=== PATIENT | female | born 1955 | race Caucasian/White ===

== ENCOUNTER 2017-09-12 15:37 | Inpatient (IN) | payer BC ==
[~2017-09-12] VITALS: Ht 149.9 cm; Wt 58.1 kg
[2017-09-12 16:08] VITALS: BP_SYST 187
[2017-09-12 18:17] LABS: EOSINOPHILS % (AUTO) 0.2 % (0.0-4.0); HEMOGLOBIN 16.4 g/dL (12.0-16.0); LYMPHOCYTES # (AUTO) 0.6 K/uL (1.0-5.5); LYMPHOCYTES % (AUTO) 6.2 % (20.5-51.5); MEAN CORPUSCULAR HEMOGLOBIN 31 pg (27-31); MEAN CORPUSCULAR HGB CONC 33 % (32-36); MEAN CORPUSCULAR VOLUME 93 fL (79.0-98.0); MONOCYTES # (AUTO) 0.3 K/uL (0.0-1.0); MONOCYTES % (AUTO) 3.6 % (1.7-9.3); PLATELET COUNT (AUTO) 358 K/uL (130-430); RED BLOOD CELL COUNT(AUTO) 5.37 MIL/uL (4.2-6.2); RED CELL DISTRIBUTION WIDTH 12.6 % (9.0-15.0); WHITE BLOOD COUNT (AUTO) 9.6 K/uL (4.8-10.8)
[2017-09-12 18:20] LABS: BASOPHILS % (AUTO) 0.2 % (0.0-2.0); NEUTROPHILS # (AUTO) 8.7 K/uL (1.8-7.7); NEUTROPHILS % (AUTO) 89.8 % (40.0-70.0)
[2017-09-12 20:21] LABS: BILIRUBIN,URINE NEGATIVE (NEGATIVE); BLOOD, URINE NEGATIVE (NEGATIVE); CLARITY/URINE CLEAR (CLEAR); COLOR,URINE YELLOW (YELLOW); GLUCOSE,URINE 3+ (NEGATIVE); KETONES,URINE 3+ (NEGATIVE); LEUKOCYTE ESTERASE ,URINE NEGATIVE (NEGATIVE); NITRITE, URINE NEGATIVE (NEGATIVE); PH,URINE 6.5 (5.0-8.0); PROTEIN URINE NEGATIVE (NEGATIVE); UROBILINOGEN,URINE 0.2 (0.2-1.0)
[2017-09-12 20:48] LABS: BACTERIA,URINE None Seen /HPF (None Seen); RBC,URINE 0-3 /HPF (0-3); WBC,URINE 0-3 /HPF (0-3)
[2017-09-12] MEDS ORDERED: MORPHINE 4 MG/ML INJ. SYRINGE IVP ONE (21:30)
[2017-09-12] MEDS ORDERED: NACL 0.9% 1,000 ML IV ONE (21:30)
[2017-09-12] MEDS ORDERED: MORPHINE 2 MG/ML INJ. SYRINGE ONE (22:18)
[2017-09-12] MEDS: NACL 0.9% 1,000 ML IV SCH (22:50)
[2017-09-12] MEDS ORDERED: ACETAMINOPHEN 325 MG TABLET PO PRN (23:15)
[2017-09-12] MEDS ORDERED: MORPHINE 2 MG/ML INJ. SYRINGE IVP PRN (23:15)
[2017-09-12] MEDS ORDERED: ONDANSETRON HCL 4 MG/2 ML VIAL IVP PRN (23:15)
[2017-09-13 02:12] LABS: CALCIUM 9.7 mg/dL (8.4-11.0); CREATININE 0.59 mg/dL (0.55-1.30); POTASSIUM 4.4 mmol/L (3.5-5.1)
[2017-09-13 02:16] LABS: ALBUMIN 4.2 g/dL (3.4-4.8); TOTAL BILIRUBIN 0.6 mg/dL (0.0-1.0)
[2017-09-13 02:43] LABS: FREE T4 (FREE THYROXINE) 0.5 ng/dL (0.6-1.6); PHOSPHORUS 4.5 mg/dL (2.7-4.5); THYROID STIMULATING HORMONE 0.41 uIu/mL (0.34-4.82)
[2017-09-13] MEDS ORDERED: LISI10TA5 PO (06:45)
[2017-09-13] MEDS ORDERED: GLU500 PO (06:45)
[2017-09-13] MEDS: DOCUSATE SODIUM 100 MG CAPSULE PO SCH ×2 (09:00→21:00)
[2017-09-13] MEDS: NACL 0.9% 1,000 ML IV SCH (10:07)
[2017-09-13 10:29] VITALS: BP_SYST 138
[2017-09-13 12:00] VITALS: BP_SYST 135
[2017-09-13 16:00] VITALS: BP_SYST 134
[2017-09-13] MEDS ORDERED: SIMETHICONE 80 MG TAB.CHEW PO PRN (16:15)
[2017-09-13] MEDS ORDERED: LORazepam 2 MG/ML VIAL IVP PRN (16:15)
[2017-09-13] MEDS ORDERED: ZOLPIDEM TARTRATE 5 MG TABLET PO PRN (16:15)
[2017-09-13] MEDS ORDERED: BISACODYL 10 MG/SUPPOSITORY RC PRN (16:15)
[2017-09-13] MEDS ORDERED: POTASSIUM CHLORIDE 20 MEQ TAB.PRT.SR PO PRN (16:15)
[2017-09-13] MEDS ORDERED: INSULIN REGULAR, HUMAN 100 UNITS/ML, 10 ML VIAL (novoLIN R) SUBCUT PRN (16:15)
[2017-09-13] MEDS: D5/0.45 NS 1,000 ML IV SCH (17:00)
[2017-09-13] MEDS ORDERED: DEXTROSE 50%-WATER 50 ML DISP.SYRIN IVP PRN ×2 (17:30)
[2017-09-13] MEDS ORDERED: GLUCOSE 15 GM GEL (in 37.5 GM TUBE) PO PRN ×2 (17:30)
[2017-09-13 20:10] VITALS: BP_SYST 149
[2017-09-13 23:56] VITALS: BP_SYST 136
[2017-09-14] MEDS: D5/0.45 NS 1,000 ML IV SCH ×2 (01:16→09:40)
[2017-09-14 08:01] LABS: BASOPHILS # (AUTO) 0.1 K/uL (0.0-0.2); BASOPHILS % (AUTO) 0.6 % (0.0-2.0); EOSINOPHILS # (AUTO) 0.1 K/uL (0.0-0.4); EOSINOPHILS % (AUTO) 0.7 % (0.0-4.0); HEMATOCRIT 43.8 % (36-48); HEMOGLOBIN 14.4 g/dL (12.0-16.0); LYMPHOCYTES # (AUTO) 1.8 K/uL (1.0-5.5); LYMPHOCYTES % (AUTO) 20.4 % (20.5-51.5); MEAN CORPUSCULAR HEMOGLOBIN 31 pg (27-31); MEAN CORPUSCULAR HGB CONC 33 % (32-36); MEAN CORPUSCULAR VOLUME 93 fL (79.0-98.0); MONOCYTES # (AUTO) 0.8 K/uL (0.0-1.0); NEUTROPHILS # (AUTO) 6.1 K/uL (1.8-7.7); NEUTROPHILS % (AUTO) 69.3 % (40.0-70.0); PLATELET COUNT (AUTO) 326 K/uL (130-430); RED CELL DISTRIBUTION WIDTH 12.5 % (9.0-15.0); WHITE BLOOD COUNT (AUTO) 8.9 K/uL (4.8-10.8)
[2017-09-14 08:05] LABS: CALCIUM 8.9 mg/dL (8.4-11.0); CREATININE 0.52 mg/dL (0.55-1.30)
[2017-09-14 08:15] VITALS: BP_SYST 149
[2017-09-14 08:20] LABS: ALBUMIN 3.1 g/dL (3.4-4.8); BILIRUBIN,DIRECT 0.1 mg/dL (0.0-0.3); PHOSPHORUS 2.9 mg/dL (2.7-4.5); TOTAL BILIRUBIN 0.6 mg/dL (0.0-1.0)
[2017-09-14 08:34] LABS: T4 (THYROXINE) 6.2 ug/dL (4.5-12.0)
[2017-09-14] MEDS ORDERED: LISINOPRIL 10 MG TABLET (PRINIVIL) PO SCH (09:00)
[2017-09-14] MEDS: DOCUSATE SODIUM 100 MG CAPSULE PO SCH (09:00)
[2017-09-14 12:26] LABS: HEMOGLOBIN A1C 6.2 % (4.8-5.6)
[2017-09-14] MEDS ORDERED: ONDA4TAB5 PO (12:44)
[2017-09-14 13:25] VITALS: BP_SYST 149
== END 2017-09-14 13:45 | disposition home or self-care (01) | DRG 444 ==
LOC: SED 15:37 → SMU 23:15
PROVIDERS: ADMIT Family Medicine; ATTEND Family Medicine
DX: K80.50 Calculus of bile duct without cholangitis or cholecystitis without obstruction (principal); N17.0 Acute kidney failure with tubular necrosis; E87.1 Hypo-osmolality and hyponatremia; E44.0 Moderate protein-calorie malnutrition; E78.5 Hyperlipidemia, unspecified; E11.9 Type 2 diabetes mellitus without complications; I10 Essential (primary) hypertension; Z90.49 Acquired absence of other specified parts of digestive tract; Z88.5 Allergy status to narcotic agent; Z79.899 Other long term (current) drug therapy; Z68.25 Body mass index [BMI] 25.0-25.9, adult
CPT/HCPCS: 36415; 74181; 76705; 80048; 80053; 80061; 80076; 81000-TC; 82150-TC; 82962; 83036; 83690-TC; 83735-TC; 83880; 84100-TC; 84436; 84439; 84443-TC; 84479; 85025; 96361; 96374; 96375; 99285; J1815; J2270; J7030